=== PATIENT | female | born 1980 ===

== ENCOUNTER 2016-08-26 17:12 | Observation (INO) | payer BC ==
[~2016-08-26] VITALS: Ht 152.4 cm; Wt 55.3 kg
--- NOTE | ~2016-08-26 | HP ---
[facility] 36 Y [address] ROOM: [place] [id number] LOCATION: [facility] [place] ADMIT DATE: 08/26/2016 History & Physical DISCHARGE DATE: FAMILY PHYSICIAN: PHYSICIAN, NO ATTENDING PHYSICIAN: RICAROD CARR DATE OF SERVICE: CHIEF COMPLAINT: Headache. HISTORY OF PRESENT ILLNESS: A 36-year-old lady with no significant past medical history who presented to the Urgent Care for headache going on for 2 weeks located in the backside of the head in the occipital region, dull in character, no specific alleviating or aggravating factors, seems intermittent in nature, not associated with any eye changes, runny nose, or teary eyes. These headaches are new in onset. In the Urgent Care Department, she was found to be anemic with a hemoglobin around 7.1. She presented to the emergency department here at [facility]. On my encounter, she is saying that she is having headache, no trouble with the eyes, no trouble swallowing, no chest pain, no shortness of breath, no abdominal pain, no burning on urination, and no extremity swelling. She noted that she has been having menorrhagia for many years now. Her menses occur every month for 7 days and they are heavy. She has not been taking any iron or vitamin supplementation at home. She is 3 and para 3. REVIEW OF SYSTEMS: All other systems reviewed and were negative except what is mentioned in the HPI. ALLERGIES: NO KNOWN MEDICAL DRUG ALLERGIES. MEDICATIONS: None. PAST MEDICAL HISTORY: None. FAMILY HISTORY: Significant for diabetes and coronary artery disease in mom. SOCIAL HISTORY: Never a smoker. No drug or alcohol abuse. [facility] AGE: 36 Y [address] ROOM: [facility] [place], [place] [address] LOCATION: [facility] [place] ADMIT DATE: 08/26/2016 History & Physical DISCHARGE DATE: FAMILY PHYSICIAN: PHYSICIAN, NO ATTENDING PHYSICIAN: RICARDO CARR PHYSICAL EXAMINATION: VITAL SIGNS: Blood pressure 115/67, 67, 12, and 78. GENERAL: No acute distress. Alert and oriented x3. HEENT: Head: Atraumatic, normocephalic. Eyes: Positive pallor. Oropharynx: Dry mucous membranes. SKIN: Apparent pallor on the skin. CARDIOVASCULAR: S1, S2. No murmurs, gallops, or rubs. LUNGS: Clear to auscultation bilaterally. ABDOMEN: Soft, nontender, nondistended. Bowel sounds present. EXTREMITIES: No clubbing, cyanosis, or edema. NEUROLOGIC: Cranial nerves 2 through 12 are intact. No motor or sensory deficit noted. PSYCH: Normal affect, mood, and speech. LABORATORY DATA: Lab work significant for hemoglobin of 6.9 with the MCV of 60, rest of the lab work is unremarkable. test is negative. CAT scan was done by the emergency provider, which is negative. ASSESSMENT: 1. Microcytic anemia. 2. Headache, likely tension in nature. PLAN: We are going to obtain iron studies. She has most likely iron-deficient anemia. Given that she is in the hospital, we will transfer 2 units of blood to correct her iron deficiency. She needs to get appointment with the manager package treatment for this menorrhagia. We will anticipate discharge early in the morning tomorrow. MD CHAVEZ FERNANDEZ/zee /[id number] D: [id number] T: [id number] HISTORY & PHYSICAL
--- NOTE | ~2016-08-26 | DS ---
PATIENT'S NAME: TERRA SALTER [facility] AGE: 36 Y [address] ROOM: [place] [address] LOCATION: [facility] [place] ADMIT DATE: 08/26/2016 Discharge Summary DISCHARGE DATE: 08/27/2016 FAMILY PHYSICIAN: PHYSICIAN, NO ATTENDING PHYSICIAN: Jose Guthrie PRIMARY DIAGNOSIS FOR HOSPITALIZATION: Symptomatic anemia. SECONDARY DIAGNOSES: 1. Menorrhagia. 2. Macrocytosis. 3. Iron deficiency anemia. RELEVANT LABS TRENDS DURING HOSPITALIZATION: 1. Hemoglobin was noted to be 7.1 at Urgent Care and repeat hemoglobin done in the hospital at the time of admission was the same with MCV of 60.6, platelet count of 343, and WBC count of 5.8. The patient received 2 units of PRBC transfusion in the hospital, and her post-transfusion H and H was 9.4 and 31.3 respectively. 2. The patient has normal kidney functions, normal total protein level, and slightly decreased calcium levels. 3. Iron studies done in the hospital confirmed iron deficiency anemia with iron level of 10 and a ferritin level of 1.3 and elevated TIBC. RELEVANT IMAGING STUDY DONE DURING HOSPITALIZATION: A CT scan of the head without contrast was done for evaluation of her headache and this did not show any abnormal finding. DISCHARGE MEDICATIONS: 1. Tylenol 500 mg every 6 hours as needed for headache. 2. Ferrous sulfate 325 mg by mouth daily for her iron deficiency anemia. FOLLOWUP LABS REQUIRED: Repeat CBC at primary care and/or [facility] office in 1 week. PHYSICIAN FOLLOWUPS: 1. Follow up with primary care physician in 1 week. Please note that the patient does not have a primary care physician and contact number for our clinic was given at the time of discharge. 2. Follow up with [facility] in 1 to 2 weeks for evaluation of menorrhagia. SUMMARY OF HOSPITALIZATION: Please refer to the H and P dictated by Dr. Guthrie for details of hospital admission. In summary, this is an extremely pleasant, 36-year-old female who presented to urgent care on August 26 with intractable headache. The patient does not have any significant past medical PATIENT'S NAME: TERRA SALTER [facility] AGE: 36 Y [address] ROOM: [place] [address] LOCATION: [facility] [place] ADMIT DATE: 08/26/2016 Discharge Summary DISCHARGE DATE: 08/27/2016 FAMILY PHYSICIAN: PHYSICIAN, NO ATTENDING PHYSICIAN: Jose Guthrie A history. History of menorrhagia for many years. Workup showed hemoglobin of 7.1. A CT scan of the head without contrast was done and did not show any abnormality. The patient was admitted to the hospital for observation for symptomatic anemia. She was given 2 units of PRBC transfusion. Post- transfusion, hemoglobin came up to 9.4. The patient did not have any abnormal bleeding episodes during hospitalization. The patient's headache also improved during hospitalization. Her blood pressure was on the low side, but the patient denied any symptoms of chest pain, shortness of breath, dizziness, palpitations, or syncope. She reported that her blood pressure normally runs low. However, her heart rate was also low, which was unusually in the setting of anemia and low blood pressure. An EKG was done and this showed normal sinus rhythm without any significant heart blocks or any other abnormality. The patient was discharged home with plans to repeat hemoglobin in 1 week. She was advised to take oral iron replacement. Once she establishes primary care physician, she will actually benefit from some IV iron replacement therapy as well. She was also advised to follow up with [facility] here in [facility] for evaluation and management of her menorrhagia. The patient was clinically and hemodynamically stable at the time of discharge. Our discharge plan was clearly explained to the patient and her at the time of discharge and they verbalized understanding. All their questions were answered to their satisfaction. The patient was hemodynamically stable at the time of discharge. Thank you for letting me take part in the care of this patient. MD NICHOLAS GANDARA/zee /[id number] d: 08/28/16 0225 t: 09/15/16 1603, DISCHARGE SUMMARY
--- NOTE | ~2016-08-26 | ER ---
PATIENT'S NAME: TERRA SALTER [facility] AGE: 36 Y [address] ROOM: [place] [id number] LOCATION: [facility] [place] ADMIT DATE: 08/26/2016 ER/Outpatient Report DISCHARGE DATE: FAMILY PHYSICIAN: PHYSICIAN, NO ATTENDING PHYSICIAN: RICARDO GUTHRIE Time of Arrival: 1714 hours. Time of Exam: 1728 hours. CHIEF COMPLAINT: Headache, low hemoglobin. HISTORY OF PRESENT ILLNESS: The patient states she has not felt well for the past 2 weeks. She has had a posterior headache as well as increased fatigue. Denies being nauseated, has not vomited. Denies having fever or chills. Denies any pain with urination or frequency. States her last menstrual period was August 12. Reports it was quite heavy and lots of clots. She is a 3, para 3, miscarriage 0. She did go to [facility] today because of the headache. Family asked that lab be checked which they did do. They got a hemoglobin of 6.9 and referred her here to the emergency room for further evaluation. She has not had any vaginal bleed at this time, has not noticed any blood in her urine or her stool. Does not have any pain other than the headache. ALLERGIES: SHE HAS NO KNOWN ALLERGIES. MEDICATIONS: No current medications. PAST MEDICAL HISTORY: Hiatal hernia. PAST SURGICAL HISTORY: Hiatal hernia repair, x3, rectal abscess, and cholecystectomy. SOCIAL HISTORY: Denies use of tobacco, drugs, or alcohol. Did present to the ER tonight with her . REVIEW OF SYSTEMS: All negative other than those mentioned in the HPI. PHYSICAL EXAMINATION: VITAL SIGNS: She weighs 86.3 kg, blood pressure is 120/57, pulse of 86, PATIENT'S NAME: TERRA SALTER [facility] AGE: 36 Y [address] ROOM: [place] [address] LOCATION: [facility] [place] ADMIT DATE: 08/26/2016 ER/Outpatient Report DISCHARGE DATE: FAMILY PHYSICIAN: PHYSICIAN, NO ATTENDING PHYSICIAN: RICRADO GUTHRIE respirations 20, temperature of 99.2 tympanic, O2 saturations 100% on room air. GENERAL: She is awake, alert, and oriented x4. SKIN: [place], warm, and dry. RESPIRATIONS: Even and nonlabored. Lung sounds are clear throughout. HEENT: Pupils are equal and reactive to light. Extraocular movement was intact. TMs are clear. Nasal is clear. Oropharynx is clear. NECK: Supple. No lymphadenopathy. HEART: Regular rate and rhythm. ABDOMEN: Soft, nondistended. Bowel sounds are present. No pain with deep palpation. EXTREMITIES: She has strong peripheral pulses. No peripheral edema noted. She walks with a steady even gait. Saline lock was initiated. LABORATORY DATA: Lab work was drawn. Her white count here is 5.8 with a hemoglobin of 7.1 and hematocrit of 26.0. Her Chem panel is within normal limits. Serum test is negative. Lactate was 1.8. Procalcitonin was negative. Clean-catch UA does have leukocytes and moderate bacteria. CT of the head was completed. Radiologist reports no acute findings. Vital signs remained stable. While here in the ER, she continued to be in sinus rhythm. Dr. Guthrie was contacted regarding the patient for hospitalization. IMPRESSION: Anemia. PLAN: The patient will be placed in outpatient. Received blood transfusions, care being provided by the hospitalist. She and her verbalized understanding. NITIN DILLARD APRN FOR DO TIERRA CAMARA/christyl /[id number] d: 08/27/16 0056 t: 08/30/16 0653, OUTPATIENT REPORT
[2016-08-26 17:48] LABS: BASOPHIL # 0.1 K/uL (0.0-0.2); BASOPHIL % 1.4 %; EOSINOPHIL % 0.7 %; HEMOGLOBIN 7.1 g/dL (11.0-15.0); IMMATURE GRANULOCYTE % 0.2 %; LYMPHOCYTE # 3.3 K/uL (0.8-4.0); LYMPHOCYTE % 56.2 %; MCH 16.6 pg (27.0-34.0); MCHC 27.3 gm/dL (32.0-36.5); MCV 60.6 fl (83.0-98.0); MONOCYTE # 0.5 K/uL (0.0-1.0); MONOCYTE % 8.7 %; MPV 8.8 fl (9.4-12.4); NEUTROPHIL # (ANC) 1.9 K/uL (1.8-7.8); NEUTROPHIL % 32.8 %; NRBC % 0 /100WBC (0-0.00); PLATELET COUNT 343 K/uL (150-450); RBC 4.29 M/uL (3.50-5.50); RDW-CV 19.9 % (11.9-14.6); WBC 5.8 K/uL (4.0-11.0)
[2016-08-26 18:03] LABS: BILIRUBIN URINE NEGATIVE (NEGATIVE); BLOOD URINE 10 /UL (NEGATIVE); COLOR URINE YELLOW (YELLOW); GLUCOSE URINE NEGATIVE (NEGATIVE); KETONE URINE NEGATIVE (NEGATIVE); LEUKOCYTES URINE 25 /UL (NEGATIVE); NITRITE URINE NEGATIVE (NEGATIVE); PROTEIN URINE NEGATIVE (NEGATIVE); SPEC GRAVITY URINE 1.015 (1.003-1.035); TURBIDITY URINE CLEAR (CLEAR); UROBILINOGEN URINE NORMAL (NORMAL)
[2016-08-26 18:09] LABS: ALBUMIN 3.9 gm/dL (3.5-5.0); ALK PHOS 49 IU/L (33-138); ALT 24 IU/L (12-78); AST 15 IU/L (10-40); BLOOD UREA NITROGEN 14 mg/dL (6-24); CALCIUM 8.3 mg/dL (8.5-10.5); CHLORIDE 110 mMol/L (96-110); CO2 23 mMol/L (22-32); CREATININE 0.7 mg/dL (0.5-1.1); ESTIMATED GFR (MDRD EQUATION) > 60; SODIUM 142 mMol/L (135-145); TOTAL BILIRUBIN 0.2 mg/dL (0.0-1.5); TOTAL PROTEIN 7.6 g/dL (6.0-8.4)
[2016-08-26 18:12] LABS: BACTERIA URINE MODERATE (NEGATIVE); MUCUS URINE 2+ (NEGATIVE); RBC URINE RARE #/HPF (NEGATIVE); WBC URINE 0-2 #/HPF (NEGATIVE)
[2016-08-27 05:31] LABS: HEMOGLOBIN 9.4 g/dL (11.0-15.0)
[2016-08-27 05:32] LABS: HEMATOCRIT 31.3 % (33.0-46.0)
--- NOTE | 2016-08-27 07:08 | NUR ---
Significant Event: 36 year old female admitted after having 2 weeks of headaches. States her periods are also heavy. She has no alleries, and take no medications. Her HBG was 7.1 and she received 2 units of blood last night. Labs this am showed a HBG of 9.4. Has been hypotensive with B/P's in the mid 80's systolicly. Alert and orientated, pleasant and cooperative with cares. at bedside. Denies headaches throughout the night. Iron studies were completed and a CT of head was negative. Follow up: Continue to monitor.
[2016-08-27] MEDS ORDERED: TYLENOL EXTRA500 MG PO (12:36)
[2016-08-27] MEDS ORDERED: FEOSOL325 MG PO (12:37)
--- NOTE | 2016-08-27 22:12 | NUR ---
Significant Event: Patient up ad johnny in room. Denies pain/headaches. Hemoglobin up to 9.4. Dr. Monroe in and talked with patient and and said patient could go home. Dismissal orders processed by charge nurse and reviewed with patient and spouse by overnight houseperson. Patient taken to front doors for dismissal where was going to drive patient home.
== END 2016-08-27 13:30 | disposition disaster alternative care site (69) ==
LOC: GMED 17:12 → GMSU 18:55
PROVIDERS: Nurse Practitioner Family; ADMIT Internal Medicine
DX: D50.9 Iron deficiency anemia, unspecified (principal); N92.0 Excessive and frequent menstruation with regular cycle; R51 Headache; D75.89 Other specified diseases of blood and blood-forming organs
CPT/HCPCS: G0378; J7050; P9016